=== PATIENT | female | born 1995 | race Caucasian/White ===

== ENCOUNTER 2020-12-01 22:08 | Emergency (ER) | payer MEDICAID, SELFPAY ==
[2020-12-01 22:24] VITALS: BP 135/92; PULSE 95; RESP 25; O2SAT 100; BMI 27.4
--- NOTE | 2020-12-01 22:31 | ED_ITS ---
HPI - Psych General: Chief Complaint: Psychiatric Symptoms Stated Complaint: MHE Time Seen by Provider: 12/01/20 22:20 Source: patient and EMS Mode of arrival: EMS Limitations: no limitations History of Present Illness: HPI Narrative: 25-year-old female states that she has been under a lot of stress lately has been extremely anxious today. States she feels like she is having anxiety attack and does have shaking in her hands and appears very anxious. She states she is not really sure what to do and states that she feels she cannot catch her breath. She denies any suicidal or homicidal ideations. Denies any worsening or improving factors. Review of Systems Const: Denies: fever(s), chills, body aches or change in appetite Eyes: Denies: blurry vision or eye discomfort ENMT: Denies: throat pain or dental pain Card: Denies: chest pain Resp: Denies: dyspnea GI: Denies: abdominal pain, nausea, vomiting or diarrhea : Denies: dysuria Musc: Denies: neck pain or back pain Skin/Breast: Denies: rash Neuro: Denies: headache(s) Psych: Reports: anxiety David/Lymph: Denies: easy bruising All/Imm: Denies: urticaria Physical Exam Const: COMMON NORMALS: no acute distress, patient oriented x3 and healthy appearing GENERAL APPEARANCE: anxious HENMT: COMMON NORMALS: normocephalic and atraumatic HEAD & SCALP: normocephalic and atraumatic Eye: COMMON NORMALS: Equal, round and reactive pupils present and EOMs intact bilaterally PUPIL: Yes Equal, round and reactive pupils present Neck/C-Spine: COMMON NORMALS: full ROM and supple Chest: COMMONS NORMALS: normal inspection of the chest and normal palpation of entire chest wall Resp: COMMON NORMALS: normal respiratory effort, No retractions, No use of accessory muscles and clear to auscultation bilaterally AUSCULTATION: clear to auscultation bilaterally Cardio: COMMON NORMALS: regular rate, regular rhythm and No murmurs present (Cardio) RATE: regular rate RHYTHM: regular rhythm GI: COMMON NORMALS: Normal to inspection, nondistended, normoactive bowel sounds present, Soft to palpation, non-tender and no masses PALPATION: Yes Soft to palpation Extremity: COMMON NORMALS: normal to inspection and full ROM Neuro: COMMON NORMALS: patient oriented x3, moves all extremities and no focal motor deficits Psych: COMMON NORMALS: mental status grossly normal, Normal thought process present and cooperative MOOD & AFFECT: Yes anxious THOUGHT PROCESS: Normal thought process present Skin: COMMON NORMALS: no rashes or lesions noted and no wounds GENERAL SKIN EXAM: no rashes or lesions noted Course Vital Signs: Vital signs: Vital Signs Pulse Rate 84 12/01/20 23:35 Respiratory Rate 18 12/01/20 23:35 Blood Pressure 129/81 12/01/20 23:35 Pulse Oximetry 97 12/01/20 23:35 MDM - Psych MDM Narrative: Medical decision making narrative: Patient presents here with anxiety. She has no suicidality or homicidality. Patient's blood work is all normal and she feels much improved after Ativan. Will prescribe her Vistaril she is stable for discharge. She is to follow-up PCP and return if worsening. Lab Data: Labs: Lab Results 12/01/20 12/01/20 12/01/20 Range/Units 23:10 23:10 23:10 WBC 8.9 (4.0-10.0) 10^3/ uL RBC 4.98 (4.1-5.3) 10^6/u L Hgb 12.4 (11.5-15.3) g/dL Hct 39.8 (37.0-47.0) % MCV 79.9 L (81-99) fL MCH 24.9 L (28.0-34.0) pg MCHC 31.2 (30.0-36.0) g/dL RDW 14.2 (12.1-15.1) % Plt Count 295 (130-400) 10^3/c mm MPV 11.2 H (7.4-10.4) fL Neut % (Auto) 59.2 % Lymph % (Auto) 31.7 % [place] % (Auto) 7.4 % Eos % (Auto) 1.1 % Baso % (Auto) 0.4 % Neut # (Auto) 5.28 (1.8-7.7) 10^3/u L Lymph # (Auto) 2.8 (0.8-4.8) 10^3/u L [place] # (Auto) 0.7 (0.2-0.9) 10^3/u L Eos # (Auto) 0.1 (0.0-0.8) 10^3/u L Baso # (Auto) 0.0 (0.0-0.1) 10^3/u L Nucleated RBC % (a uto) 0 % Nucleated RBCs # 0.0 /100WBC Sodium 139 (136-145) mmol/L Potassium 3.6 (3.5-5.1) mmol/L Chloride 104 (98-107) mmol/L Carbon Dioxide 26 (22-29) mmol/L Anion Gap 12.6 (5-19) BUN 13 (6-20) mg/dL Creatinine 0.8 (0.5-0.9) mg/dL GFR Calculation 87.4 L (90-130) mL/min Glucose 108 (65-115) mg/dL Calculated Osmolal ity 289 (285-295) mOsm/k g Calcium 9.3 (8.5-10.5) mg/dL Total Bilirubin 0.2 (0.15-1.2) mg/dL AST 15 (0-32) U/L ALT 10 (0-33) U/L Alkaline Phosphata se 55 (35-105) IU/L Total Protein 7.1 (6.6-8.7) g/dL Albumin 4.5 (3.5-5.2) g/dL Globulin 2.6 (1.3-4.6) g/dL HCG, Qual Negative (Negative) Salicylates < 0.3 L (3-10) mg/dL Urine Opiates Scre en (Negative) ng/mL Acetaminophen < 5.0 L (10-30) ug/mL Ur Barbiturates Sc reen (Negative) ng/mL Ur Phencyclidine S crn (Negative) ng/mL Ur Amphetamines Sc reen (Negative) ng/mL U Benzodiazepines Scrn (Negative) ng/mL Urine Cocaine Scre en (Negative) ng/mL U Marijuana (THC) Screen (Negative) ng/mL Ethyl Alcohol < 10 (0-10) mg/dL 12/01/20 Range/Units 23:10 WBC (4.0-10.0) 10^3/ uL RBC (4.1-5.3) 10^6/u L Hgb (11.5-15.3) g/dL Hct (37.0-47.0) % MCV (81-99) fL MCH (28.0-34.0) pg MCHC (30.0-36.0) g/dL RDW (12.1-15.1) % Plt Count (130-400) 10^3/c mm MPV (7.4-10.4) fL Neut % (Auto) % Lymph % (Auto) % [place] % (Auto) % Eos % (Auto) % Baso % (Auto) % Neut # (Auto) (1.8-7.7) 10^3/u L Lymph # (Auto) (0.8-4.8) 10^3/u L [place] # (Auto) (0.2-0.9) 10^3/u L Eos # (Auto) (0.0-0.8) 10^3/u L Baso # (Auto) (0.0-0.1) 10^3/u L Nucleated RBC % (a uto) % Nucleated RBCs # /100WBC Sodium (136-145) mmol/L Potassium (3.5-5.1) mmol/L Chloride (98-107) mmol/L Carbon Dioxide (22-29) mmol/L Anion Gap (5-19) BUN (6-20) mg/dL Creatinine (0.5-0.9) mg/dL GFR Calculation (90-130) mL/min Glucose (65-115) mg/dL Calculated Osmolal ity (285-295) mOsm/k g Calcium (8.5-10.5) mg/dL Total Bilirubin (0.15-1.2) mg/dL AST (0-32) U/L ALT (0-33) U/L Alkaline Phosphata se (35-105) IU/L Total Protein (6.6-8.7) g/dL Albumin (3.5-5.2) g/dL Globulin (1.3-4.6) g/dL HCG, Qual (Negative) Salicylates (3-10) mg/dL Urine Opiates Scre en Negative (Negative) ng/mL Acetaminophen (10-30) ug/mL Ur Barbiturates Sc reen Negative (Negative) ng/mL Ur Phencyclidine S crn Negative (Negative) ng/mL Ur Amphetamines Sc reen Negative (Negative) ng/mL U Benzodiazepines Scrn Negative (Negative) ng/mL Urine Cocaine Scre en Negative (Negative) ng/mL U Marijuana (THC) Screen Negative (Negative) ng/mL Ethyl Alcohol (0-10) mg/dL Discharge Plan Discharge Patient Disposition: Home Clinical Impression: Acute anxiety Condition: Stable Prescriptions: New Vistaril 25 mg capsule 25 mg PO Q8H PRN (Reason: anxiety) Qty: 20 RF: 0 Discharge Orders: Discharge ED (Routine); Ordered 12/02/20 Ordered By: Edel Dillon Discharge Diet: Advance as tolerated Discharge Activity: Resume usual activity Patient Instructions: Anxiety (ED) Coding Level of Care Code ED Registration Clerk for Joy Fwd Exam Comprehensive
--- NOTE | 2020-12-01 22:54 | ECG_ITS ---
[facility] Test Date: 2020-12-01 Pat Name: Maday Dumont Department: Room: Gender: Female [employer]: : 1995 Requested By: Edel Dillon Order Number: [id number] Darron MD: Elizabet Hebert M.D. Measurements Intervals [place] Rate: 77 P: 39 PA: 148 QRS: 52 QRSD: 101 T: 44 QT: 410 QTc: 464 Interpretive Statements SINUS RHYTHM POSSIBLE RIGHT VENTRICULAR CONDUCTION DELAY [RSR (QR) IN V1/V2] No previous ECG available for comparison Electronically Signed On 12-03-2020 14:22:21 CDT by Elizabet Hebert M.D. [id number] f
[2020-12-01] MEDS: LORazepam 2 mg/mL INJ 1 mL IVP (23:23)
[2020-12-01 23:33] LABS: Basophils % 0.4 %; Eosinophils # 0.1 10^3/uL (0.0-0.8); Eosinophils % 1.1 %; Hematocrit 39.8 % (37.0-47.0); Hemoglobin 12.4 g/dL (11.5-15.3); Lymphocytes # 2.8 10^3/uL (0.8-4.8); Lymphocytes % 31.7 %; Mean Corpuscular HGB Conc 31.2 g/dL (30.0-36.0); Mean Corpuscular Hemoglobin 24.9 pg (28.0-34.0); Mean Corpuscular Volume 79.9 fL (81-99); Mean Platelet Volume 11.2 fL (7.4-10.4); Monocytes # 0.7 10^3/uL (0.2-0.9); Monocytes % 7.4 %; Neutrophils # 5.28 10^3/uL (1.8-7.7); Neutrophils % 59.2 %; Nucleated Red Blood Cells % 0 %; Platelet Count 295 10^3/cmm (130-400); Red Blood Count 4.98 10^6/uL (4.1-5.3); Red Cell Distribution Width 14.2 % (12.1-15.1); White Blood Count 8.9 10^3/uL (4.0-10.0)
[2020-12-01 23:35] VITALS: BP 129/81; PULSE 84; RESP 18; O2SAT 97
[2020-12-01 23:36] LABS: HCG Qualitative Urine. Negative (Negative)
[2020-12-01 23:50] LABS: Alanine Aminotransferase 10 U/L (0-33); Albumin Level 4.5 g/dL (3.5-5.2); Alkaline Phosphatase 55 IU/L (35-105); Anion Gap 12.6 (5-19); Aspartate Amino Transferase 15 U/L (0-32); Blood Urea Nitrogen 13 mg/dL (6-20); Calcium 9.3 mg/dL (8.5-10.5); Carbon Dioxide 26 mmol/L (22-29); Chloride 104 mmol/L (98-107); Globulin 2.6 g/dL (1.3-4.6); Glomerular Filtration Rate 87.4 mL/min (90-130); Glucose 108 mg/dL (65-115); Osmolality Calculated 289 mOsm/kg (285-295); Potassium 3.6 mmol/L (3.5-5.1); Sodium 139 mmol/L (136-145); Total Bilirubin 0.2 mg/dL (0.15-1.2); Total Protein 7.1 g/dL (6.6-8.7)
[2020-12-01 23:52] LABS: Acetaminophen < 5.0 ug/mL (10-30); Alcohol Level < 10 mg/dL (0-10); Amphetamines Screen Urine Negative (Negative); Barbiturates Screen Urine Negative (Negative); Benzodiazepines Screen Urine Negative (Negative); Cocaine Screen Urine Negative (Negative); Opiate Screen Urine Negative (Negative); PCP Screen Urine Negative (Negative); Salicylate < 0.3 mg/dL (3-10); THC Screen Urine Negative (Negative)
[2020-12-02 00:36] VITALS: BP 115/36; PULSE 82; RESP 12; O2SAT 96
== END 2020-12-02 00:49 | disposition home or self-care (01) ==
PROVIDERS: Emergency Provider Emergency Medicine
DX: F41.9 Anxiety disorder, unspecified (principal)
CPT/HCPCS: 80053; 80306; 80307; 81025; 85025; 93005; 96374; 99284; J2060

== ENCOUNTER → 2021-09-13 15:10 | Outpatient (BNVA) | payer MEDICAID, SELFPAY | PROVIDERS: Visit Provider Obstetrics & Gynecology | DX: O28.3 Abnormal ultrasonic finding on antenatal screening of mother (principal); Z3A.00 Weeks of gestation of pregnancy not specified | CPT/HCPCS: 84702; 85027; 86850; 86900 ==

== ENCOUNTER → 2021-09-15 09:42 | Outpatient (BNVA) | payer BC, MEDICAID, SELFPAY | PROVIDERS: Visit Provider Obstetrics & Gynecology | DX: N92.6 Irregular menstruation, unspecified (principal); N91.2 Amenorrhea, unspecified; Z12.4 Encounter for screening for malignant neoplasm of cervix; N93.9 Abnormal uterine and vaginal bleeding, unspecified | CPT/HCPCS: 81025; 83525; 84443; 88175 ==

== ENCOUNTER 2021-09-16 22:27 | Emergency (ER) | payer BC, MEDICAID, SELFPAY ==
[2021-09-16 22:29] VITALS: BP 141/91; PULSE 73; RESP 14; TEMP 36.8; O2SAT 100; BMI 32.2
--- NOTE | 2021-09-16 23:19 | CTR_ITS ---
PROCEDURE INFORMATION: Exam: CT Abdomen And Pelvis With Contrast Exam date and time: 09/17/2021 12:11 AM Age: 26 years old Clinical indication: Abdominal pain; Generalized; Patient HX: C/O diffuse abd pain worse more on the RT side. TECHNIQUE: Imaging protocol: Computed tomography of the abdomen and pelvis with contrast. Radiation optimization: All CT scans at this facility use at least one of these dose optimization techniques: automated exposure control; mA and/or kV adjustment per patient size (includes targeted exams where dose is matched to clinical indication); or iterative reconstruction. Contrast material: OMNI 300; Contrast volume: 95 ml; Contrast route: INTRAVENOUS (IV); COMPARISON: US OB transvaginal [facility] 09/13/2021 2:00 PM RADIATION DOSE METRICS: Total DLP (mGy-cm): 1681.86 FINDINGS: Lungs: Lung bases are clear. Liver: There are hypodense nodules in the superior right lobe of the liver measuring 12 x 9 mm and 8 x 8 mm on series 2, image 15. Gallbladder and bile ducts: The gallbladder is normal. There is no biliary dilation. Pancreas: The pancreas is unremarkable. Spleen: The spleen is unremarkable. Adrenal glands: The adrenal glands are unremarkable. Kidneys and ureters: The kidneys are unremarkable. No hydronephrosis or stones. No ureteral dilation. Stomach and bowel: The stomach is decompressed, preventing meaningful evaluation of wall thickness. The small bowel is nondilated. The colon is unremarkable. Appendix: The appendix is normal. Intraperitoneal space: There is no free air or significant intraperitoneal free fluid. Arteries: The aorta is unremarkable. There is no aneurysm. Veins: The portal, splenic and superior mesenteric veins are patent. Lymph nodes: There is no lymphadenopathy in the retroperitoneum, mesentery, pelvis or inguinal regions. Urinary bladder: The urinary bladder is decompressed, preventing meaningful evaluation of wall thickness. Reproductive: The uterus is unremarkable. There is no adnexal mass or large cyst. Bones/joints: Bones are unremarkable. Soft tissues: The abdominal wall is intact. CT/CT abdomen pelvis w con* [id number] IMPRESSION: 1. No acute findings. 2. Nonspecific hypodense liver nodules in the superior right lobe. Further evaluation with non-emergent liver MRI is recommended. (Reference: Kevin) REFERENCES: Kevin LEMUS, et al. Management of Incidental Liver Lesions on CT: A White Paper of the ACR Incidental Findings Committee. J Am Tyrone Radiol. 2017;14(11):0872-5825.
--- NOTE | 2021-09-16 23:24 | W.ED.ABDPA2 ---
HPI - Abdominal Pain General: Chief Complaint: Abdominal Pain Stated Complaint: Spotting Time Seen by Provider: 09/16/21 23:13 Source: patient Mode of arrival: ambulatory Limitations: no limitations History of Present Illness: 26-year-old female who states she been having abdominal pain over the last 2 to 3 days states she been having diffuse cramping she states she was believing that she was but she saw OB yesterday and had a negative test and negative ultrasound. States that today her pain is worsened states is from her breastbone all way down to her pubic bone and right today 8 out of 10. She denies any vomiting or diarrhea denies any fever. Associated Symptoms: Denies chills, dysuria and fever(s) Review of Systems Const: Denies: fever(s), chills, body aches or change in appetite Eyes: Denies: blurry vision or eye discomfort ENMT: Denies: throat pain or dental pain Card: Denies: chest pain Resp: Denies: dyspnea GI: Reports: abdominal pain : Denies: dysuria Musc: Denies: neck pain or back pain Skin/Breast: Denies: rash Neuro: Denies: headache(s) Psych: Denies: depression David/Lymph: Denies: easy bruising All/Imm: Denies: urticaria PFSH ED PFSH: Medical History Anxiety No pertinent past medical history Surgical History No pertinent past surgical history Family History Father Diabetes Stroke Denies family history of CAD (coronary artery disease) Clotting disorder Hyperlipidemia Chronic kidney disease (CKD) Bleeding disorder Cancer Hypertension Thyroid disease Physical Exam Const: COMMON NORMALS: no acute distress, patient oriented x3 and healthy appearing HENMT: COMMON NORMALS: normocephalic and atraumatic HEAD & SCALP: normocephalic and atraumatic Eye: COMMON NORMALS: Equal, round and reactive pupils present and EOMs intact bilaterally PUPIL: Yes Equal, round and reactive pupils present Neck/C-Spine: COMMON NORMALS: full ROM and supple Chest: COMMONS NORMALS: normal inspection of the chest and normal palpation of entire chest wall Resp: COMMON NORMALS: normal respiratory effort, No retractions, No use of accessory muscles and clear to auscultation bilaterally AUSCULTATION: clear to auscultation bilaterally Cardio: COMMON NORMALS: regular rate, regular rhythm and No murmurs present (Cardio) RATE: regular rate RHYTHM: regular rhythm GI: COMMON NORMALS: Normal to inspection, nondistended, normoactive bowel sounds present, Soft to palpation and no masses PALPATION: Yes Soft to palpation OTHER: diffuse mild tenderness Extremity: COMMON NORMALS: normal to inspection and full ROM Neuro: COMMON NORMALS: patient oriented x3, moves all extremities and no focal motor deficits Psych: COMMON NORMALS: mental status grossly normal, Normal thought process present and cooperative THOUGHT PROCESS: Normal thought process present Skin: COMMON NORMALS: no rashes or lesions noted and no wounds GENERAL SKIN EXAM: no rashes or lesions noted Course Vital Signs: Vital signs: Vital Signs Temperature 98.3 F 09/17/21 00:00 Pulse Rate 65 09/17/21 01:00 Respiratory Rate 22 H 09/17/21 00:00 Blood Pressure 121/64 09/17/21 01:00 Pulse Oximetry 99 09/17/21 01:00 MDM - Abdominal Pain Medical Decision Making Patient presents here with abdominal pain likely from a UTI she feels improved here CT shows no acute findings blood work is otherwise normal we will place her on antibiotic along with pain medicine have her follow-up with her PCP and return if worsening. Lab Data : 09/17/21 00:03 09/17/21 00:03 Labs/Radiology: Radiology Impressions Abdomen/Pelvis CT 09/16/21 23:19 IMPRESSION: 1. No acute findings. 2. Nonspecific hypodense liver nodules in the superior right lobe. Further evaluation with non-emergent liver MRI is recommended. (Reference: Kevin) REFERENCES: Kevin RM, et al. Management of Incidental Liver Lesions on CT: A White Paper of the ACR Incidental Findings Committee. J Am Tyrone Radiol. 2017;14(11):9374-7987. Laboratory Results WBC 8.0 10^3/uL (4.0-10.0) 09/17/21 00:03 RBC 5.50 10^6/uL (4.1-5.3) H 09/17/21 00:03 Hgb 14.1 g/dL (11.5-15.3) 09/17/21 00:03 Hct 44.2 % (37.0-47.0) 09/17/21 00:03 MCV 80.4 fl (81-99) L 09/17/21 00:03 MCH 25.6 pg (28.0-34.0) L 09/17/21 00:03 MCHC 31.9 g/dL (30.0-36.0) 09/17/21 00:03 RDW 12.2 % (12.1-15.1) 09/17/21 00:03 Plt Count 334 10^3/cmm (130-400) 09/17/21 00:03 MPV 10.5 fL (7.4-10.4) H 09/17/21 00:03 Neut % (Auto) 61.3 % 09/17/21 00:03 Lymph % (Auto) 28.6 % 09/17/21 00:03 [place] % (Auto) 7.0 % 09/17/21 00:03 Eos % (Auto) 2.6 % 09/17/21 00:03 Baso % (Auto) 0.4 % 09/17/21 00:03 Neut # (Auto) 4.88 10^3/uL (1.8-7.7) 09/17/21 00:03 Lymph # (Auto) 2.3 10^3/uL (0.8-4.8) 09/17/21 00:03 [place] # (Auto) 0.6 10^3/uL (0.2-0.9) 09/17/21 00:03 Eos # (Auto) 0.2 10^3/uL (0.0-0.8) 09/17/21 00:03 Baso # (Auto) 0.0 10^3/uL (0.0-0.1) 09/17/21 00:03 Nucleated RBC % (auto) 0 % 09/17/21 00:03 Nucleated RBCs # 0.0 /100WBC 09/17/21 00:03 Sodium 138 mmol/L (136-145) 09/17/21 00:03 Potassium 3.8 mmol/L (3.5-5.1) 09/17/21 00:03 Chloride 103 mmol/L (98-107) 09/17/21 00:03 Carbon Dioxide 26 mmol/L (22-29) 09/17/21 00:03 Anion Gap 12.8 (5-19) 09/17/21 00:03 BUN 13 mg/dL (6-20) 09/17/21 00:03 Creatinine 0.7 mg/dL (0.5-0.9) 09/17/21 00:03 GFR Calculation 101.1 mL/min (90-130) 09/17/21 00:03 Glucose 92 mg/dL (65-115) 09/17/21 00:03 Calculated Osmolality 286 mOsm/kg (285-295) 09/17/21 00:03 Calcium 9.6 mg/dL (8.5-10.5) 09/17/21 00:03 Total Bilirubin 0.2 mg/dL (0.15-1.2) 09/17/21 00:03 AST 14 U/L (0-32) 09/17/21 00:03 ALT 16 U/L (0-33) 09/17/21 00:03 Alkaline Phosphatase 64 IU/L (35-105) 09/17/21 00:03 Total Protein 7.5 g/dL (6.6-8.7) 09/17/21 00:03 Albumin 4.7 g/dL (3.5-5.2) 09/17/21 00:03 Globulin 2.8 g/dL (1.3-4.6) 09/17/21 00:03 Lipase 41 U/L (13-60) 09/17/21 00:03 Ser , Semi-Qnt 0.50 mIU/mL 09/17/21 00:03 Urine Color Red (Yellow) 09/17/21 00:03 Urine Appearance Sl cloudy (CLEAR) A 09/17/21 00:03 Urine pH 5 (5-7) 09/17/21 00:03 Ur Specific [place] 1.015 (1.005-1.030) 09/17/21 00:03 Urine Protein 3+ (Negative) H 09/17/21 00:03 Urine Glucose (UA) Norm (Normal) 09/17/21 00:03 Urine Ketones 1+ (Negative) H 09/17/21 00:03 Urine Blood 3+ (Negative) H 09/17/21 00:03 Urine Nitrate Negative (Negative) 09/17/21 00:03 Urine Bilirubin Neg (Negative) 09/17/21 00:03 Urine Urobilinogen Norm mg/dL (Negative) 09/17/21 00:03 Ur Leukocyte Esterase 2+ (Negative) H 09/17/21 00:03 Urine RBC >100 /hpf (0-2) H 09/17/21 00:03 Urine WBC >100 /hpf (0-5) H 09/17/21 00:03 Ur Squamous Epith Cells 55-80 /hpf (0-5) H 09/17/21 00:03 Amorphous Sediment Not Reportable 09/17/21 00:03 Urine Bacteria 2+ /hpf (NONE) H 09/17/21 00:03 Discharge Plan Discharge Patient Disposition: Home Clinical Impression: Abdominal pain, Acute cystitis Condition: Stable Prescriptions: New hydrocodone-acetaminophen 5-325 mg tablet 1 tab PO Q6H PRN (Reason: pain) Qty: 14 0RF cephalexin 500 mg capsule 500 mg PO TID 7 Days Qty: 21 0RF ondansetron 4 mg tablet,disintegrating 4 mg PO Q6H PRN (Reason: nausea and vomiting) Qty: 14 0RF No Action levothyroxine 75 mcg tablet 75 mcg PO DAILY Qty: 30 0RF Vistaril 25 mg capsule 25 mg PO Q8H PRN (Reason: anxiety) Qty: 20 0RF Discharge Orders: Discharge ED (Routine); Ordered 09/17/21 Ordered By: Edel Dillon Discharge Diet: Advance as tolerated Discharge Activity: Resume usual activity Patient Instructions: Urinary Tract Infection in Men (ED), Abdominal Pain (ED), Opioid Safety Coding Level of Care Code ED Acid Recovery Operator for Chg Fwd Exam Comprehensive
[2021-09-16 23:34] VITALS: BP 143/79; PULSE 70; RESP 20; TEMP 36.8; O2SAT 99
[2021-09-16] MEDS: metoclopramide 5 mg/mL SDV 2 mL 10 MG IVP (23:54)
[2021-09-16] MEDS: diphenhydrAMINE 50 mg/mL SDV 1mL IVP (23:54)
[2021-09-16] MEDS: sodium chloride 0.9% 1,000 ML 999 ML IV (23:56)
[2021-09-17] VITALS: BP 118/84; PULSE 90; RESP 22; TEMP 36.8; O2SAT 100
[2021-09-17] MEDS: iohexol 300 mg/mL 100 mL Btl IV (00:09)
[2021-09-17 00:10] LABS: Basophils % 0.4 %; Eosinophils # 0.2 10^3/uL (0.0-0.8); Eosinophils % 2.6 %; Hematocrit 44.2 % (37.0-47.0); Hemoglobin 14.1 g/dL (11.5-15.3); Lymphocytes # 2.3 10^3/uL (0.8-4.8); Lymphocytes % 28.6 %; Mean Corpuscular HGB Conc 31.9 g/dL (30.0-36.0); Mean Corpuscular Hemoglobin 25.6 pg (28.0-34.0); Mean Corpuscular Volume 80.4 fl (81-99); Mean Platelet Volume 10.5 fL (7.4-10.4); Monocytes # 0.6 10^3/uL (0.2-0.9); Neutrophils # 4.88 10^3/uL (1.8-7.7); Neutrophils % 61.3 %; Nucleated Red Blood Cells % 0 %; Platelet Count 334 10^3/cmm (130-400); Red Cell Distribution Width 12.2 % (12.1-15.1)
[2021-09-17 00:30] VITALS: BP 102/54; PULSE 75; O2SAT 100
[2021-09-17 00:40] LABS: Urine Color Red (Yellow); pH Urine 5 (5-7)
[2021-09-17 00:41] LABS: Add Urine Microscopic? YES; Bilirubin Urine Neg (Negative); Blood Urine 3+ (Negative); Glucose Urine UA Norm (Normal); Ketones Urine 1+ (Negative); Leukocyte Esterase Urine 2+ (Negative); Nitrate Urine Negative (Negative); Protein Urine 3+ (Negative); Specific Gravity, Urine 1.015 (1.005-1.030); Urobilinogen Urine Norm (Negative)
[2021-09-17 00:43] LABS: RBC Urine >100 /hpf (0-2); WBC Urine >100 /hpf (0-5)
[2021-09-17 00:44] LABS: Add Urine Culture? No; Bacteria Urine 2+ /hpf; Squamous Epithelial Cell Urine 55-80 /hpf (0-5)
[2021-09-17 00:52] LABS: Alanine Aminotransferase 16 U/L (0-33); Albumin Level 4.7 g/dL (3.5-5.2); Alkaline Phosphatase 64 IU/L (35-105); Anion Gap 12.8 (5-19); Aspartate Amino Transferase 14 U/L (0-32); Blood Urea Nitrogen 13 mg/dL (6-20); Calcium 9.6 mg/dL (8.5-10.5); Carbon Dioxide 26 mmol/L (22-29); Chloride 103 mmol/L (98-107); Globulin 2.8 g/dL (1.3-4.6); Glomerular Filtration Rate 101.1 mL/min (90-130); Glucose 92 mg/dL (65-115); Lipase 41 U/L (13-60); Osmolality Calculated 286 mOsm/kg (285-295); Potassium 3.8 mmol/L (3.5-5.1); Sodium 138 mmol/L (136-145); Total Bilirubin 0.2 mg/dL (0.15-1.2); Total Protein 7.5 g/dL (6.6-8.7)
[2021-09-17 01:00] VITALS: BP 121/64; PULSE 65; O2SAT 99
[2021-09-17] MEDS: cefTRIAXone 1,000 MG in sodium chloride 0.9% (plus) 50 ML 100 MG IV (01:14)
[2021-09-17 01:50] VITALS: BP 112/57; PULSE 83; RESP 14; O2SAT 100
== END 2021-09-17 01:52 | disposition home or self-care (01) ==
PROVIDERS: Emergency Provider Emergency Medicine
DX: N30.00 Acute cystitis without hematuria (principal)
CPT/HCPCS: 74177; 80053; 81001; 83690; 84702; 85025; 96365; 96375; 99284; J0696; J1200; J2765; J7030; Q9967